=== PATIENT | female | born 1995 | race Caucasian/White ===

== ENCOUNTER 2023-11-18 17:29 | Emergency (ER) | payer BC ==
[~2023-11-18] VITALS: Ht 165.1 cm; Wt 53.5 kg
[2023-11-18] MEDS ORDERED: Rho(D) Immune Globulin 300 MCG/2 ML SYR IM ONE (18:10)
== END 2023-11-18 18:27 | disposition home or self-care (01) ==
LOC: ED 17:29
DX: O03.9 Complete or unspecified spontaneous abortion without complication (principal); Z29.13 Encounter for prophylactic Rho(D) immune globulin

== ENCOUNTER → 2023-11-18 | Outpatient (CLI) | payer BC | END | disposition home or self-care (01) | LOC: US 02:27 | PROVIDERS: ATTEND Family Medicine | DX: O03.9 Complete or unspecified spontaneous abortion without complication (principal); Z3A.00 Weeks of gestation of pregnancy not specified ==

== ENCOUNTER → 2023-12-11 | Outpatient (CLI) | payer BC ==
[2023-12-13 16:07] LABS: TB1 Ag VALUE 0.26 IU/mL (.)
== END | disposition home or self-care (01) ==
LOC: LAB 16:47
PROVIDERS: ATTEND Family Medicine
DX: O03.9 Complete or unspecified spontaneous abortion without complication (principal)

== ENCOUNTER → 2023-12-13 | Outpatient (CLI) | payer BC | END | disposition home or self-care (01) | LOC: LAB 07:35 | PROVIDERS: ATTEND Family Medicine | DX: O03.9 Complete or unspecified spontaneous abortion without complication (principal) ==